=== PATIENT | female | born 1950 | race Two or more races ===

== ENCOUNTER 2021-08-14 08:30 | Inpatient (IN) | payer OTHER ==
[~2021-08-14] VITALS: Ht 157.5 cm; Wt 61.2 kg
[2021-08-15] MEDS ORDERED: IRBESARTAN-HCT1 EACH (15:35)
[2021-08-15] MEDS ORDERED: ADULT LOW DOSE81 M1 (15:35)
[2021-08-15] MEDS ORDERED: ATORVASTATIN CA10 MG (15:35)
== END 2021-08-21 19:42 | disposition home or self-care (01) | DRG 740 ==
LOC: O/R 08-16 09:25 → OB/GYN 08-16 10:00
PROVIDERS: ADMIT Specialist; ATTEND Specialist
PROC: 0UT20ZZ Resection of Bilateral Ovaries, Open Approach (ICD-10-PCS; 2021-08-16)
PROC: 0UT70ZZ Resection of Bilateral Fallopian Tubes, Open Approach (ICD-10-PCS; 2021-08-16)
PROC: 07BC0ZZ Excision of Pelvis Lymphatic, Open Approach (ICD-10-PCS; 2021-08-16)
PROC: 0UT90ZZ Resection of Uterus, Open Approach (ICD-10-PCS; principal; 2021-08-16 12:00)
DX: C53.0 Malignant neoplasm of endocervix (principal); K56.7 Ileus, unspecified; L02.412 Cutaneous abscess of left axilla; N84.0 Polyp of corpus uteri; N84.1 Polyp of cervix uteri; N83.8 Other noninflammatory disorders of ovary, fallopian tube and broad ligament; N83.292 Other ovarian cyst, left side; N83.291 Other ovarian cyst, right side; D36.0 Benign neoplasm of lymph nodes

== ENCOUNTER 2021-08-23 00:26 | Inpatient (IN) | payer OTHER ==
[~2021-08-23] VITALS: Ht 165.1 cm; Wt 56.7 kg
[~2021-08-23 00:26] MED LIST: ADULT LOW DOSE81 M1; ATORVASTATIN CA10 MG; IRBESARTAN-HCT1 EACH
--- NOTE | 2021-08-23 00:43 | NUR ---
SE RECIBE FEMINA ALERTA Y ORIENTADA POR ANGELES ESFERAS, EN AMBULANCIA.REFIERE QUE PRESENTA DOLOR PELVICO Y EDEMA EN AMBAS RODILLAS.
--- NOTE | 2021-08-23 01:17 | NUR ---
PTE EVALUADA POR EL DR VICK GONZALEZ [place]. MS S DONTRELL ORIENTA SOBRE EL MISMO, LO CUAL REFIERE ENTENDER Y REALIZA PRUEBAS DE LABORATORIO SHANTA ORDEN MEDICA Y SIGUIENDO MEDIDAS ASEPTICAS.
[2021-08-24] MEDS ORDERED: VISINE ALLERGY15 ML (08:03)
[2021-08-24] MEDS ORDERED: OFLOXACIN5 ML (08:04)
[2021-08-24] MEDS ORDERED: KETOROLAC TROMET5 ML (08:04)
[2021-08-24] MEDS ORDERED: AMLODIPINE BESYL5 MG (08:04)
[2021-08-24] MEDS ORDERED: FAMOTIDINE20 MG (08:04)
[2021-08-24] MEDS ORDERED: [UNRECOGNIZED DRUG - OTHER] (08:04)
[2021-08-24] MEDS ORDERED: VITAMIN D310 MC4 (08:04)
[2021-08-24] MEDS ORDERED: PREDNISOLONE ACE5 ML (08:05)
[2021-08-24] MEDS ORDERED: VITAMIN E200 UNI2 (08:05)
== END 2021-08-27 13:04 | disposition home or self-care (01) | DRG 389 ==
LOC: ER 00:26 → SEC-K 14:29 → MEDI 18:34 → SEC-K 18:35 → SURH 08-24 23:28
PROVIDERS: ADMIT Obstetrics & Gynecology; ATTEND Obstetrics & Gynecology
PROC: BW21ZZZ Computerized Tomography (CT Scan) of Abdomen and Pelvis (ICD-10-PCS; principal; 2021-08-23)
DX: K56.690 Other partial intestinal obstruction (principal); K91.89 Other postprocedural complications and disorders of digestive system; T14.8XXA Other injury of unspecified body region, initial encounter; L08.89 Other specified local infections of the skin and subcutaneous tissue; Z20.822 Contact with and (suspected) exposure to COVID-19